=== PATIENT | female | born 1980 | race American Indian/Alaskan Native ===

== ENCOUNTER 2016-06-17 10:35 | Emergency (ER) | payer SELFPAY ==
[2016-06-17 10:55] VITALS: BP 117/64
--- NOTE | 2016-06-17 12:27 | Emergency Department Report ---
Chief Complaint: Dental/Oral Stated Complaint: TOOTH PAIN/FACIAL SWELLING Time Seen by Provider: 06/17/16 12:24 - HPI History of Present Illness: 36-year-old female comes in for complaint of swollen left upper mouth since Thursday. He reports she has a bad tooth in her mouth. Patient reports she has been taking Tylenol and Motrin without much resolution. She denies any fever or chills since reports she is sleeping more. She reports that she is having some difficulty swallowing secondary to mouth. - Exam Vital Signs: Vital Signs 06/17/16 10:52 Temperature 98.3 F Pulse Rate 92 H Respiratory 16 Rate Blood Pressure 117/64 O2 Sat by Pulse 100 Oximetry Physical Exam: Alert and oriented 3. Left upper jaw first tooth swelling around the gingiva. MSE screening note: Focused history and physical exam performed. Due to findings the following was ordered: patient was NME ED Disposition for MSE Disposition: MEDICAL SCREENING EXAM-LEFT Condition: Stable Referrals: PRIMARY CARE, [Primary Care Provider] - 3-5 Days
== END 2016-06-17 13:00 | disposition left against medical advice (07) ==
LOC: ED 10:35
DX: R22.0 Localized swelling, mass and lump, head (principal); K08.89 Other specified disorders of teeth and supporting structures; R13.10 Dysphagia, unspecified; Z53.21 Procedure and treatment not carried out due to patient leaving prior to being seen by health care provider